=== PATIENT | female | born 1990 | race African-American/Black ===

== ENCOUNTER 2019-08-27 13:03 | Emergency (ER) | payer MEDICAID ==
[~2019-08-27] VITALS: Ht 162.6 cm; Wt 72.6 kg
[2019-08-27 13:42] VITALS: BP 120/68
[2019-08-27] MEDS ORDERED: cefTRIAXone SOD 1,000 MG VL IM ONE (14:15)
[2019-08-27] MEDS ORDERED: ACETAMINOPHEN 500 MG TAB PO ONE (14:15)
== END 2019-08-27 15:06 | disposition home or self-care (01) ==
LOC: ER 13:03
DX: J03.90 Acute tonsillitis, unspecified (principal)
CPT/HCPCS: 96372; 99283; J0696